=== PATIENT | female | born 2000 | race Caucasian/White ===

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

== ENCOUNTER 2018-10-19 21:26 | Emergency (ER) | payer BC, OTHER ==
[~2018-10-19] VITALS: Ht 157.5 cm; Wt 52.2 kg
[2018-10-19 21:30] VITALS: BP 113/78
[2018-10-19] MEDS ORDERED: KETOROLAC 60 MG/2 ML VIAL. IM ONE (22:15)
[2018-10-19] MEDS ORDERED: PHENAZOPYRIDINE 200 MG TABLET. PO ONE (22:15)
[2018-10-19] MEDS ORDERED: cefTRIAXone IM 1 GM VIAL IM ONE (22:15)
[2018-10-19] MEDS ORDERED: PHEN100T82 PO (22:20)
--- NOTE | 2018-10-19 22:24 | PHYS DOC ---
Adult General Chief Complaint Chief Complaint dysuria HPI HPI 18 years old female presented to the emergency department with vaginal pain she was seen and evaluated today by nurse practitioner who told she has UTI and bacteria vaginosis she was started on Macrobid and Flagyl. Patient emergency department complaining of pelvic pain requesting pain medication Review of Systems Review of Systems Constitutional: Denies fever or chills [] Eyes: Denies change in visual acuity, redness, or eye pain [] HENT: Denies nasal congestion or sore throat [] Respiratory: Denies cough or shortness of breath [] Cardiovascular: No additional information not addressed in HPI [] GI: Denies abdominal pain, nausea, vomiting, bloody stools or diarrhea [] : + dysuria or hematuria [] Musculoskeletal: Denies back pain or joint pain [] Integument: Denies rash or skin lesions [] Neurologic: Denies headache, focal weakness or sensory changes [] Endocrine: Denies polyuria or polydipsia [] All other systems were reviewed and found to be within normal limits, except as documented in this note. Current Medications Current Medications Current Medications Medications (Trade) Dose Ordered Sig/Carmen Start Time Stop Time Status Last Admin Dose Admin Ceftriaxone Sodium (Rocephin Im) 1 gm 1X ONCE 10/19/18 22:15 10/19/18 22:16 UNV Ketorolac Tromethamine (Toradol Im) 60 mg 1X ONCE 10/19/18 22:15 10/19/18 22:16 UNV Phenazopyridine HCl (Pyridium) 200 mg 1X ONCE 10/19/18 22:15 10/19/18 22:16 UNV Allergies Allergies Allergies Coded Allergies Type Severity Reaction Last Updated Verified amoxicillin Allergy Unknown 10/19/18 Yes clavulanic acid Allergy Unknown 10/19/18 Yes Physical Exam Physical Exam Constitutional: Well developed, well nourished, no acute distress, non-toxic appearance. [] HENT: Normocephalic, atraumatic, bilateral external ears normal, oropharynx moist, no oral exudates, nose normal. [] Eyes: PERRLA, EOMI, conjunctiva normal, no discharge. [] Neck: Normal range of motion, no tenderness, supple, no stridor. [] Cardiovascular:Heart rate regular rhythm, no murmur [] Lungs & Thorax: Bilateral breath sounds clear to auscultation [] Abdomen: Bowel sounds normal, soft, no tenderness, no masses, no pulsatile masses. [] Pelvic exam revealed redness over the vagina and the labia major Current Patient Data Vital Signs Vital Signs Date Time Temp Pulse Resp B/P (MAP) Pulse Ox O2 Delivery O2 Flow Rate FiO2 10/19/18 21:30 98.1 96 16 99 Room Air EKG EKG [] Radiology/Procedures Radiology/Procedures [] Course & Med Decision Making Course & Med Decision Making Pertinent Labs and Imaging studies reviewed. (See chart for details) [] Final Impression Final Impression [] Problems: (1) Vaginitis Qualifiers: Qualified Codes: N76.0 - Acute vaginitis Dragon Disclaimer Dragon Disclaimer This electronic medical record was generated, in whole or in part, using a voice recognition dictation system. FAUSTINO KAMARA MD Oct 19, 2018 22:24
== END 2018-10-19 22:52 | disposition home or self-care (01) ==
LOC: ER 21:26
DX: N76.0 Acute vaginitis (principal); Z88.1 Allergy status to other antibiotic agents
CPT/HCPCS: 96372; 99283; J0696; J1885

== ENCOUNTER → 2020-03-07 | Outpatient (CLI) | payer OTHER ==
[~2020-03-07] MED LIST: PHEN100T82 PO
[2020-03-07 12:50] LABS: BASO % 1 % (0-3); EOS # 0.1 x10^3/uL (0.0-0.7); EOS % 1 % (0-3); HEMATOCRIT 38.7 % (36.0-47.0); HEMOGLOBIN 12.8 g/dL (12.0-15.5); LYMPH % 42 % (24-48); MEAN CORPUSCULAR HEMOGLOBIN 26 pg (25-35); MEAN CORPUSCULAR HGB CONC 33 g/dL (31-37); MEAN CORPUSCULAR VOLUME 80 fL (79-100); MONO # 0.5 x10^3/uL (0.0-1.1); MONO % 9 % (0-9); NEUT # 2.3 x10^3uL (1.8-7.7); NEUT % 47 % (31-73); PLATELET COUNT 289 x10^3/uL (140-400); RED BLOOD COUNT 4.86 x10^6/uL (3.50-5.40); RED CELL DISTRIBUTION WIDTH 15.2 % (11.5-14.5); WHITE BLOOD COUNT 4.9 x10^3/uL (4.0-11.0)
[2020-03-07 16:30] LABS: THYROID STIM HORMONE (TSH) 1.178 uIU/mL (0.358-3.740)
== END | disposition home or self-care (01) ==
LOC: LAB 11:47
PROVIDERS: ATTEND Dermatology
DX: L70.0 Acne vulgaris (principal); Z79.899 Other long term (current) drug therapy
CPT/HCPCS: 36415; 80061; 82565; 84443; 84450; 84460; 84520; 84702; 85025